=== PATIENT | male | born 1965 | race Caucasian/White ===

== ENCOUNTER 2023-07-03 05:23 | Emergency (ER) | payer BC ==
[2023-07-03 06:28] LABS: INFLUENZA A NAA NEGATIVE (NEGATIVE); INFLUENZA B NAA NEGATIVE (NEGATIVE); RESPIRATORY SYNCYTIAL VIR NAA NEGATIVE (NEGATIVE)
[2023-07-03 06:30] LABS: CORONAVIRUS COVID-19 NAA NEGATIVE (NEGATIVE)
[2023-07-03] MEDS ORDERED: Nystatin Susp 100,000 Unit/ML 5 ML UD Cup ONE (07:00)
[2023-07-05] MEDS: Nystatin Susp 100,000 Unit/ML 5 ML UD Cup ONE (12:10)
== END 2023-07-03 07:03 | disposition home or self-care (01) ==
LOC: LB.ED 05:23
DX: B37.0 Candidal stomatitis (principal); I10 Essential (primary) hypertension; E78.00 Pure hypercholesterolemia, unspecified; K21.9 Gastro-esophageal reflux disease without esophagitis; E11.40 Type 2 diabetes mellitus with diabetic neuropathy, unspecified; E66.9 Obesity, unspecified; Z68.35 Body mass index [BMI] 35.0-35.9, adult; Z79.899 Other long term (current) drug therapy; Z79.84 Long term (current) use of oral hypoglycemic drugs; Z20.822 Contact with and (suspected) exposure to COVID-19
CPT/HCPCS: 0241U; 87430; 99282; 99284; A9270-GY